=== PATIENT | female | born 1995 | race Two or more races ===

== ENCOUNTER 2016-07-05 05:33 | Inpatient (IN) | payer MEDICAID ==
[~2016-07-05 05:33] MED LIST: HUMALOG KW200 UNIT/1 SC; LEVEMIR FL100 UNIT/2 SC; LEVEMIR100 UNITS/ SC
[2016-07-05 06:28] LABS: BASO % 0.4 % (0-2); EOS % 0.6 % (0-7); EOSINOPHIL ABSOLUTE COUNT 0.1 tho/cmm (0.0-0.7); HCT-HEMATOCRIT 43.3 % (34.0-49.0); HGB-HEMOGLOBIN 14.2 gm/dl (12.0-15.5); IMMATURE GRANULOCYTES ABSOLUTE 0.15 tho/cmm (0-0.03); IMMATURE GRANULOCYTES PERCENT 1.5 % (0-0.3); LYMPH % 36.6 % (20-45); LYMPH ABSOLUTE COUNT 3.7 tho/cmm (0.8-4.5); MCH (MEAN CORPUSCULAR HGB) 30.1 pg (28.0-32.0); MCHC MEAN CORPUSCULAR HGB CONC 32.8 % (32.0-36.0); MCV (MEAN CELL VOLUME) 91.7 fl (82.0-96.0); MEAN PLATELET VOLUME 11.6 cmc (9.4-12.4); MONO % 6.6 % (0-12); MONOCYTE ABSOLUTE COUNT 0.7 tho/cmm (0.0-1.2); NEUTROPHIL ABSOLUTE COUNT 5.5 tho/cmm (1.6-8.0); NEUTROPHIL-AUTOMATED 5.5 tho/cmm (1.6-8.0); NEUTROPHILS % 54.3 % (40-80); PLATELET COUNT 453 tho/cmm (150-450); RED BLOOD COUNT 4.72 mil/cmm (4.00-5.20); RED CELL DISTRIBUTION WIDTH 12.8 % (12.4-16.4); WHITE BLOOD COUNT 10.1 tho/cmm (4.0-10.0)
[2016-07-05 06:38] LABS: KETONE-BETA (WHOLE BLOOD) 4.2 mmol/L (0.0-0.6)
[2016-07-05 06:41] LABS: CARBON DIOXIDE-VENOUS <9 mmol/L (21-33); GLUCOSE 632 mg/dl (65-120)
[2016-07-05 06:52] LABS: PREGNANCY-SERUM NEGATIVE (NEGATIVE)
[2016-07-05 07:01] LABS: ALB/GLOB RATIO 0.9 (0.8-2.0); ALBUMIN 4.2 g/dl (3.5-5.0); ALKALINE PHOSPHATASE 190 U/L (33-138); ALT/SGPT 39 U/L (12-78); AST/SGOT 29 U/L (10-40); BILIRUBIN,TOTAL 0.7 mg/dl (0-1.5); BLOOD UREA NITROGEN 21 mg/dl (6-24); CHLORIDE 90 mmol/l (96-110); CREATININE 1.01 mg/dl (0.50-1.10); POTASSIUM 4.7 mmol/L (3.7-5.1); SODIUM 126 mmol/L (135-145); eGFR VALUE FOR BLACK >90 mL/Min
[2016-07-05 07:05] LABS: ANION GAP 32 mmol/L (0-20)
[2016-07-05 07:53] LABS: URINE BILIRUBIN NEGATIVE (NEG); URINE BLOOD NEGATIVE (NEG); URINE GLUCOSE (UA) LARGE (NEG); URINE KETONE LARGE (NEG); URINE LEUKOCYTE ESTERASE NEGATIVE (NEG); URINE NITRITE NEGATIVE (NEG); URINE PROTEIN MODERATE (NEG); URINE SPECIFIC GRAVITY 1.025 (1.003-1.030)
[2016-07-05 07:56] LABS: URINE APPEARANCE CLEAR; URINE COLOR YELLOW
[2016-07-05 08:08] LABS: URINE EPITHELIAL CELLS 0-1 /[HPF] (0-10); URINE RBC 0 /[HPF] (0-5); URINE WBC 0-1 /[HPF] (0-5)
[2016-07-05 08:23] LABS: MAGNESIUM 1.9 mg/dl (1.8-2.6); PHOSPHOROUS 3.6 mg/dl (2.5-4.9)
[2016-07-05 12:07] LABS: BLOOD UREA NITROGEN 12 mg/dl (6-24); CALCIUM 7.5 mg/dl (8.5-10.5); CHLORIDE 109 mmol/l (96-110); SODIUM 139 mmol/L (135-145); eGFR VALUE FOR BLACK >90 mL/Min
[2016-07-05 12:12] LABS: ANION GAP 20 mmol/L (0-20); CARBON DIOXIDE-VENOUS 15 mmol/L (22-32); GLUCOSE 187 mg/dL (70-110)
[2016-07-05 15:07] LABS: ABG CO2 ARTERIAL 16 mmol/L (21-27); ARTERIAL BLD GAS O2 SATURATION 99 % (95-98); ARTERIAL BLOOD GAS PCO2 27 mmHg (32-45); ARTERIAL PO2 103 mmHg (70-100); BICARBONATE 16 mmol/L (21-28); BLOOD GAS BASE EXCESS -8 mM/L (-/+3); PH 7.38 Units (7.35-7.45)
[2016-07-05 17:46] LABS: BLOOD UREA NITROGEN 7 mg/dl (6-24); CALCIUM 7.3 mg/dl (8.5-10.5); CARBON DIOXIDE-VENOUS 15 mmol/L (22-32); CHLORIDE 111 mmol/l (96-110); CREATININE 0.59 mg/dl (0.50-1.10); GLUCOSE 161 mg/dL (70-110); PHOSPHOROUS 1.8 mg/dl (2.5-4.9); SODIUM 137 mmol/L (135-145); eGFR VALUE FOR BLACK >90 mL/Min
[2016-07-05 17:48] LABS: ANION GAP 16 mmol/L (0-20); MAGNESIUM 2.4 mg/dl (1.8-2.6); POTASSIUM 4.9 mmol/L (3.7-5.1)
[2016-07-06 00:24] LABS: ANION GAP 16 mmol/L (0-20); BLOOD UREA NITROGEN 5 mg/dl (6-24); CARBON DIOXIDE-VENOUS 18 mmol/L (22-32); CHLORIDE 112 mmol/l (96-110); CREATININE 0.63 mg/dl (0.50-1.10); GLUCOSE 148 mg/dL (70-110); SODIUM 142 mmol/L (135-145); eGFR VALUE FOR BLACK >90 mL/Min
[2016-07-06 00:38] LABS: POTASSIUM 3.6 mmol/L (3.7-5.1)
[2016-07-06 04:12] LABS: ANION GAP 11 mmol/L (0-20); BLOOD UREA NITROGEN 3 mg/dl (6-24); CARBON DIOXIDE-VENOUS 22 mmol/L (22-32); CHLORIDE 112 mmol/l (96-110); CREATININE 0.52 mg/dl (0.50-1.10); GLUCOSE 77 mg/dL (70-110); POTASSIUM 3.4 mmol/L (3.7-5.1); SODIUM 142 mmol/L (135-145); eGFR VALUE FOR BLACK >90 mL/Min
[2016-07-06 04:54] LABS: MAGNESIUM 1.9 mg/dl (1.8-2.6); PHOSPHOROUS 1.3 mg/dl (2.5-4.9)
[2016-07-06 08:15] LABS: ANION GAP 12 mmol/L (0-20); BLOOD UREA NITROGEN 2 mg/dl (6-24); CALCIUM 7.1 mg/dl (8.5-10.5); CARBON DIOXIDE-VENOUS 21 mmol/L (22-32); CHLORIDE 115 mmol/l (96-110); CREATININE 0.43 mg/dl (0.50-1.10); GLUCOSE 89 mg/dL (70-110); POTASSIUM 4.1 mmol/L (3.7-5.1); SODIUM 144 mmol/L (135-145); eGFR VALUE FOR BLACK >90 mL/Min
[2016-07-06] MEDS ORDERED: NOVOLOG100 UNITS/ (10:57)
[2016-08-26] MEDS ORDERED: KEFLEX500 M4 PO (18:06)
[2016-08-26] MEDS ORDERED: ZOFRAN ODT4 MG PO (18:07)
[2016-08-26] MEDS ORDERED: NORCO 5/3251 TAB PO (18:07)
[2016-09-03] MEDS ORDERED: ONDANSETRON ODT4 M1 PO (10:15)
[2016-09-03] MEDS ORDERED: CEPHALEXIN500 M1 PO (10:15)
== END 2016-07-06 12:45 | DRG 638 ==
LOC: EDMED 05:33 → EMR2 08:23 → PCUA 12:15
PROVIDERS: Emergency Medicine; ADMIT Internal Medicine
DX: E10.10 Type 1 diabetes mellitus with ketoacidosis without coma (principal); E87.1 Hypo-osmolality and hyponatremia; Z79.4 Long term (current) use of insulin; Z72.0 Tobacco use
CPT/HCPCS: C9113; J1650; J1815; J2405; J3475; J3480; J7030